=== PATIENT | male | born 1995 | race Caucasian/White ===

== ENCOUNTER 2019-12-09 12:00 | Emergency (ER) | payer SELFPAY ==
[2019-12-09] MEDS ORDERED: MORPHINE SULFATE 10 MG/ML INJ IV ONE ×2 (12:36→17:23)
[2019-12-09] MEDS ORDERED: NORMAL SALINE 1000 ML 1,000 ML IV ONE (12:37)
[2019-12-09] MEDS ORDERED: ONDANSETRON HCL INJ/PF 4 MG/2 ML SDV IV ONE (12:38)
--- NOTE | 2019-12-09 12:42 | ER Document Report ---
ED Medical Screen (RME) - General Chief Complaint: blood in stool Stated Complaint: BLOODY STOOL/LOWER ABDOMINAL PAIN Time Seen by Provider: 12/09/19 12:31 - HPI Notes: 12/09/19 12:38 24-year-old male presents to the emergency room for complaints of having melena, left upper quadrant left lower quadrant abdominal pain, nausea him, bilateral testicular pain while he was having a bowel movement this morning. Reports that he did pass some stool and then he filled the bowl with blood approximately 3 hours ago. Reports that he did have some melena in his stool for the last few months but per patient and father nothing much came from when he told the [employer] about this. Denies any trauma. Denies any bleeding disorders. Reports he feels dizzy and weak. Denies any chest pain shortness of breath, reports nausea and denies any vomiting. Patient denies any history of IBS, Crohn's, colitis, hemorrhoids, is not on any blood thinners. Has never had a colonoscopy. Denies any fevers or chills. Patient denies any abdominal surgeries I have greeted and performed a rapid initial assessment of this patient. A comprehensive ED assessment and evaluation of the patient, analysis of test results and completion of the medical decision making process will be conducted by additional ED providers. PHYSICAL EXAMINATION: GENERAL: Acutely ill well-nourished and in mild distress HEAD: Atraumatic, normocephalic. CV: s1, s2 regular LUNGS: No respiratory distress abd: LUQ, LLQ abd pain with some distention to LLQ Musculoskeletal: Normal range of motion NEUROLOGICAL: Normal speech, normal gait. SKIN: Warm, Dry, normal turgor, no rashes or lesions noted. Past Medical History - Social History Chew tobacco use (# tins/day): No Frequency of alcohol use: Occasional Drug Abuse: None Physical Exam - Vital signs Vitals: Temp Pulse Resp BP Pulse Ox 98.1 F 66 18 126/76 H 98 12/09/19 12:12/09/19 12:12/09/19 12:12/09/19 12:12/09/19 12:08 Course - Vital Signs Vital signs: Temp Pulse Resp BP Pulse Ox 98.1 F 66 18 126/76 H 98 12/09/19 12:08 12/09/19 12:08 12/09/19 12:08 12/09/19 12:08 12/09/19 12:08
[2019-12-09 14:09] LABS: ABSOLUTE EOSINOPHILS # (AUTO) 0.1 10^3/uL (0.0-0.6); ABSOLUTE LYMPHOCYTES (AUTO) 1.7 10^3/uL (0.5-4.7); ABSOLUTE MONOCYTES (AUTO) 0.4 10^3/uL (0.1-1.4); ABSOLUTE NEUT (AUTO) 4.4 10^3/uL (1.7-8.2); BASOPHILS % (AUTO) 0.7 % (0-2); EOSINOPHILS % (AUTO) 0.9 % (0-6); HEMATOCRIT 41.3 % (37.9-51.0); HEMOGLOBIN 14.1 g/dL (13.5-17.0); LYMPHOCYTES % (AUTO) 25.9 % (13-45); MEAN CORPUSCULAR HEMOGLOBIN 29.6 pg (27.0-33.4); MEAN CORPUSCULAR HGB CONC 34.2 g/dL (32.0-36.0); MEAN CORPUSCULAR VOLUME 86 fl (80-97); MONOCYTES % (AUTO) 5.5 % (3-13); PLATELET COUNT 533 10^3/uL (150-450); RED BLOOD COUNT 4.78 10^6/uL (4.35-5.55); RED CELL DISTRIBUTION WIDTH 13.5 % (11.5-14.0); TOTAL CELLS COUNTED % (AUTO) 100 %; WHITE BLOOD COUNT 6.5 10^3/uL (4.0-10.5)
[2019-12-09 14:29] LABS: ALBUMIN 4.9 g/dL (3.5-5.0); ALKALINE PHOSPHATASE 60 U/L (38-126); ANION GAP 12 (5-19); ASPARTATE AMINO TRANSFERASE 25 U/L (17-59); BILIRUBIN,DIRECT 0.2 mg/dL (0.0-0.4); BILIRUBIN,TOTAL 0.6 mg/dL (0.2-1.3); BLOOD UREA NITROGEN 14 mg/dL (7-20); CALCIUM 10.3 mg/dL (8.4-10.2); CARBON DIOXIDE 28 mmol/L (22-30); CHLORIDE 102 mmol/L (98-107); GLUCOSE 90 mg/dL (75-110); POTASSIUM 4.7 mmol/L (3.6-5.0); TOTAL PROTEIN 8.1 g/dL (6.3-8.2)
--- NOTE | 2019-12-09 14:29 | RADIOLOGY REPORT (SQ) ---
EXAM DESCRIPTION: U/S SCROTUM W/DOPPLER IMAGES COMPLETED DATE/TIME: 12/09/2019 2:17 pm REASON FOR STUDY: Bilateral testicular pain COMPARISON: None. TECHNIQUE: Static and realtime jiménez scale imaging of the scrotum and testes. Selected color Doppler and spectral images recorded to document blood flow. LIMITATIONS: None. FINDINGS: RIGHT: TESTICLE: Normal size. Normal echotexture. Normal blood flow. No mass. EPIDIDYMIS: Normal. HYDROCELE OR VARICOCELE: No. HERNIA OR EXTRA-TESTICULAR MASS: No. OTHER: No other significant finding. LEFT: TESTICLE: Normal size. Normal echotexture. Normal blood flow. No mass. EPIDIDYMIS: Normal. HYDROCELE OR VARICOCELE: No. HERNIA OR EXTRA-TESTICULAR MASS: No. OTHER: No other significant finding. IMPRESSION: NORMAL SCROTAL ULTRASOUND. NO EVIDENCE OF TESTICULAR MASS OR TORSION. TECHNICAL DOCUMENTATION: JOB ID: [id number] 2010 [employer]- All Rights Reserved Reading location - IP/workstation name: [email or web address]
[2019-12-09 14:36] LABS: APPEARANCE,URINE CLEAR; BILIRUBIN,URINE NEGATIVE (NEGATIVE); COLOR,URINE YELLOW; GLUCOSE, URINE NEGATIVE (NEGATIVE); KETONES,URINE NEGATIVE (NEGATIVE); LEUKOCYTE ESTERASE,URINE SMALL (NEGATIVE); NITRITE,URINE NEGATIVE (NEGATIVE); PROTEIN,URINE NEGATIVE (NEGATIVE); URINE SPECIFIC GRAVITY 1.015; UROBILINOGEN,URINE NEGATIVE mg/dL (<2.0)
--- NOTE | 2019-12-09 15:44 | RADIOLOGY REPORT (SQ) ---
EXAM DESCRIPTION: CT ABD/PELVIS WITH IV ONLY IMAGES COMPLETED DATE/TIME: 12/09/2019 3:18 pm REASON FOR STUDY: LUQ, LLQ abd pain, slightly distended. +melena COMPARISON: None. TECHNIQUE: CT scan of the abdomen and pelvis performed using helical scanning technique with dynamic intravenous contrast injection. No oral contrast. Images reviewed with lung, soft tissue, and bone windows. Reconstructed coronal and sagittal MPR images reviewed. Delayed images for evaluation of the urinary system also acquired. All images stored on PACS. All CT scanners at this facility use dose modulation, iterative reconstruction, and/or weight based d osing when appropriate to reduce radiation dose to as low as reasonably achievable (ALARA). [facility]: Dose Right [facility]: CareDose [facility]: Dose Right [facility]: Teradose 4D [facility]: Buy With Fetch CONTRAST TYPE AND DOSE: contrast/concentration: Isovue 350.00 mmol/ml; Total Contrast Delivered: 100 .0 ml; Total Saline Delivered: 54.3 ml RENAL FUNCTION: None required. The patient is less than 50 years old. RADIATION DOSE: CT Rad equipment meets quality standard of care and radiation dose reduction techniq ues were employed. CTDIvol: NaN - NaN mGy. DLP: 0 mGy-cm.. LIMITATIONS: None. FINDINGS: LOWER CHEST: No significant findings. No nodules or infiltrates. LIVER: Normal size. No masses. Hypoattenuation along the falciform ligament, likely secondary to sys temic venous drainage. No dilated ducts. SPLEEN: Normal size. No focal lesions. PANCREAS: No masses. No significant calcifications. No adjacent inflammation or peripancreatic fluid collections. Pancreatic duct not dilated. GALLBLADDER: No identified stones by CT criteria. No inflammatory changes to suggest cholecystitis. ADRENAL GLANDS: No significant masses or asymmetry. RIGHT KIDNEY AND URETER: No solid masses. No significant calcifications. No hydronephrosis or hyd roureter. LEFT KIDNEY AND URETER: No solid masses. No definite renal stones. Calcific density within the reg ion of the distal left ureter which is favored to be a phlebolith. No hydronephrosis or hydroureter . AORTA AND VESSELS: No aneurysm. No dissection. Renal arteries, SMA, celiac without stenosis. RETROPERITONEUM: No retroperitoneal adenopathy, hemorrhage or masses. BOWEL AND PERITONEAL CAVITY: No masses or inflammatory changes. No free fluid or peritoneal masses. APPENDIX: Normal appendix which is retrocecal in location. PELVIS: No mass. No free fluid. Normal bladder. ABDOMINAL WALL: No masses. No hernias. BONES: No acute bony abnormality. No suspicious osseous lesions. Bone island within the right ischi um. OTHER: No other significant finding. IMPRESSION: 1. No definite evidence of acute intra-abdominal/pelvic process. Normal appendix. 2. Punctate radiodensity within the region of the distal left ureter favored to represent a phleboli th. Recommend correlation with urinalysis. TECHNICAL DOCUMENTATION: JOB ID: [id number] Quality ID # [id number]: Final reports with documentation of one or more dose reduction techniques (e.g., Au tomated exposure control, adjustment of the mA and/or kV according to patient size, use of iterative reconstruction technique) 2010 [employer]- All Rights Reserved Reading location - IP/workstation name: [email or web address]
--- NOTE | 2019-12-09 19:21 | ER Document Report ---
ED General - General Chief Complaint: Abdominal Pain Stated Complaint: BLOODY STOOL/LOWER ABDOMINAL PAIN Time Seen by Provider: 12/09/19 12:31 Mode of Arrival: Ambulatory Information source: Patient Notes: Patient is an otherwise healthy 24-year-old male coming in today with testicular pain and hematochezia. Patient states that over the past 7 months or so, he has had intermittent episodes of bright red blood per rectum. Occasionally has some left lower quadrant abdominal pain and also a viselike squeezing sensation in his testicles. Such was the case this morning when he wa s in college and the pain came on and he had to leave class. Had intense pain in his left lower quadrant went to the bathroom and passed a large volume of blood in the toilet. He felt like his testicles were "in a vice". I spoke to dad who was present and dad does not report any family history of any bowel disease. Patient reports not having lost any weight and not feeling weak due to his symptoms - Related Data Allergies/Adverse Reactions: No Known Allergies Allergy (Verified 12/09/19 17:44) Past Medical History - Social History Smoking Status: Never Smoker Chew tobacco use (# tins/day): No Frequency of alcohol use: Occasional Drug Abuse: None Family History: None Review of Systems - Review of Systems Notes: Constitutional: No fevers. No chills. EENT: No eye redness. No eye pain. No ear pain. No sore throat. Cardiovascular: No chest pain. No palpitations. Respiratory: No cough. No shortness of breath. No respiratory distress. Gastrointestinal: +abdominal pain. No nausea, vomiting, or diarrhea. Positive hematochezia Genitourinary: Atraumatic. No lesions. No pain. No discharge. Positive left testicular pain Musculoskeletal: Atraumatic. No swelling. No deformities. Skin: No rash or lesions. Lymphatic: No swollen lymph nodes. Neurologic: No headache. No syncope. Psychiatric: No suicidal or homicidal ideation. Physical Exam - Vital signs Vitals: Temp Pulse Resp BP Pulse Ox 98.1 F 66 18 126/76 H 98 12/09/19 12:08 12/09/19 12:08 12/09/19 12:08 12/09/19 12:08 12/09/19 12:08 - Notes Notes: General: Well-developed, well-nourished. In no acute distress. Non-toxic appearing. Cardiac: Well-perfused. Regular rate and rhythm. No murmurs, rubs, or gallops. Pulmonary: No respiratory distress. No cyanosis. Bilateral lung fiels are clear to auscultation. Abdominal: Non-distended. Non-rigid. Bowels sounds are present in all four quadrants. No guarding or rebound. HEENT: Head is atraumatic. Conjunctivae not reddened. No tearing. PERRL. EOMI. Orbits atraumatic. No periorbital swelling or erythema. Oropharynx is without erythema, swelling, or exudates. Neck: Supple. No adenopathy. No meningismus. Dermatologic: Warm with good turgor. No rash. Atraumatic. Chest: Atraumatic. No chest wall tenderness to palpation. Musculoskeletal: Moves all extremities well. No range of motion deficits. no muscular or joint tenderness. No paraspinal muscle tenderness. no midline spinal tenderness or step-off. Genitourinary: Examination deferred Neurologic: No gross neurologic deficits. Psychiatric: Normal mood. Course - Re-evaluation Re-evalutation: 12/09/19 19:18 Patient's entire work-up is negative. Labs, urine, CT, scrotal ultrasound everything looks good. Patient does need to be scoped probably. He has insurance. I advised him to get established with a primary care physician so that he can get worked up a little bit more and potentially get a referral over to a GI specialist. I will give him the name of a GI specialist Dr. Christianson for follow-up if he desires. We will give him some Bentyl as needed for pain. He is advised to return here if he has significant hemorrhaging or symptoms of anemia - Vital Signs Vital signs: Temp Pulse Resp BP Pulse Ox 98.1 F 66 18 126/76 H 98 12/09/19 12:08 12/09/19 12:08 12/09/19 12:08 12/09/19 12:08 12/09/19 12:08 - Laboratory Result Diagrams: 12/09/19 13:41 12/09/19 13:41 Laboratory results interpreted by me: 12/09/19 12/09/19 12/09/19 13:41 13:41 14:14 Plt Count 533 H Calcium 10.3 H Ur Leukocyte Esterase SMALL H - Diagnostic Test Radiology reviewed: Reports reviewed Discharge - Discharge Clinical Impression: Hematochezia Abdominal pain Qualifiers: Abdominal location: unspecified location Qualified Code(s): R10.9 - Unspecified abdominal pain Testicular pain Qualifiers: Laterality: unspecified laterality Qualified Code(s): N50.819 - Testicular pain, unspecified Condition: Good Disposition: HOME, SELF-CARE Instructions: Abdominal Pain ([facility]), Antispasmodics ([facility]), Rectal Bleeding, Unclear Cause ([facility]) Additional Instructions: Please call your [employer] phone number to find a local doctor to establish for general medical issues. You may call to see if he can get you into his office for a checkup on your abdominal problems. Take Bentyl 1 tab every 6 hours as needed for intestinal cramping. Prescriptions: Dicyclomine HCl [Bentyl 20 mg Tablet] 20 mg PO Q6HP PRN #20 tablet PRN Reason: Forms: Return to School
[2019-12-09 19:59] VITALS: BP 133/60
== END 2019-12-09 19:31 | disposition home or self-care (01) ==
LOC: ER 12:00
DX: K92.1 Melena (principal); R10.30 Lower abdominal pain, unspecified; N50.812 Left testicular pain; N50.811 Right testicular pain
CPT/HCPCS: 96376; 99285; 96361; 96374; 96375; 36415; 83690; 85025; 80053; 81001; 76870; 93976; 74177; J2270; J2405; J7030